=== PATIENT | female | born 1975 | race Caucasian/White ===

== ENCOUNTER 2016-11-03 15:49 | Emergency (ER) | payer OTHER ==
[~2016-11-03] VITALS: Ht 162.6 cm; Wt 69.2 kg
[2016-11-03 16:41] LABS: HEMATOCRIT 41.5 % (36.0-46.0); MCH 30.2 PG (29.0-34.0); MCHC 34.5 G/DL (30.0-36.0); MCV 87.7 FL (83-99); MEAN PLAT.VOLUME 10.8 uM^3 (9.5-12.4); PLATELET COUNT 247 K/uL (156-360); RBC DIS.WIDTH-CV 12.8 % (11.8-14.6); RBC DIS.WIDTH-SD 40.5 % (39-53); RED BLOOD COUNT 4.73 M/uL (3.80-5.20); WHITE BLOOD COUNT 6.5 K/uL (4.1-10.2)
[2016-11-03 16:48] LABS: CHLORIDE 104 mEq/L (99-109); POTASSIUM 3.4 mEq/L (3.7-5.4); SODIUM 138 mEq/L (136-147)
[2016-11-03 16:50] LABS: GLUCOSE 141 mg/dL (70-99)
[2016-11-03 16:51] LABS: ANION GAP 11 MEQ/L (2-14)
[2016-11-03 16:54] LABS: GFR ESTIMATE (CALCULATED) > 59 mL/min/
[2016-11-03 16:55] LABS: UREA NITROGEN (BUN) 9 mg/dL (9-23)
[2016-11-03 17:00] LABS: TROP-I INTERPRETATION NEGATIVE; TROPONIN-I < 0.01 ng/mL (0.0-0.30)
[2016-11-03 17:45] LABS: QUANTITATIVE HCG < 4.0 MIU/ML
[2016-11-03] MEDS ORDERED: BUPROPION XL300 MG PO (17:49)
[2016-11-03] MEDS ORDERED: ESCITALOPRAM OX20 MG PO (17:50)
[2016-11-03] MEDS ORDERED: JUNEL FE 1/21 TABLET PO (17:50)
[2016-11-03 19:43] VITALS: BP 112/73
== END 2016-11-03 19:45 | disposition home or self-care (01) ==
LOC: EME 15:49
DX: R07.89 Other chest pain (principal); R09.1 Pleurisy
CPT/HCPCS: 71020; 71275; 80048; 84484; 84702; 85027; 93005; 99281; 99285